=== PATIENT | male | born 2000 | race Hispanic/Latino ===

== ENCOUNTER 2022-03-31 20:55 | Inpatient (IN) | payer OTHER ==
[~2022-03-31] VITALS: Ht 167.6 cm; Wt 58.6 kg
[2022-03-31 21:29] LABS: HEMATOCRIT 44.8 % (42.0-52.0); HEMOGLOBIN 15.9 g/dl (13.5-17.5); MEAN CORPUSCULAR HEMOGLOBIN 30.6 pg (27.0-33.0); MEAN CORPUSCULAR HGB CONC 35.5 g/dl (32.0-36.5); MEAN CORPUSCULAR VOLUME 86.3 fl (80.0-96.0); PLATELET COUNT, AUTOMATED 277 10^3/uL (150-450); RED BLOOD COUNT 5.19 10^6/uL (4.30-6.10); WHITE BLOOD COUNT 12.4 10^3/uL (4.0-10.0)
[2022-03-31 21:52] LABS: AMPHETAMINES LEVEL URINE NEGATIVE (NEGATIVE); BARBITURATES URINE NEGATIVE (NEGATIVE); BENZODIAZEPINES URINE NEGATIVE (NEGATIVE); CANNABINOIDS URINE NEGATIVE (NEGATIVE); COCAINE METABOLITE URINE NEGATIVE (NEGATIVE); METHADONE URINE NEGATIVE (NEGATIVE); OPIATES URINE NEGATIVE (NEGATIVE); PHENCYCLIDINE URINE NEGATIVE (NEGATIVE)
[2022-03-31 22:01] LABS: ACETAMINOPHEN LEVEL < 2.0 UG/ML (10.0-30.0); ALBUMIN 4.2 GM/DL (3.2-5.2); ALT/SGPT 23 U/L (12-78); BILIRUBIN,DIRECT < 0.1 MG/DL (0.0-0.2); BILIRUBIN,TOTAL 0.5 MG/DL (0.2-1.0); BLOOD UREA NITROGEN 13 MG/DL (7-18); CALCIUM LEVEL 9.2 MG/DL (8.5-10.1); CARBON DIOXIDE LEVEL 30 MEQ/L (21-32); CHLORIDE LEVEL 108 MEQ/L (98-107); CREATININE FOR GFR 0.98 MG/DL (0.70-1.30); ETHYL ALCOHOL (ETHANOL) < 0.003 % (0.000-0.010); GLUCOSE, FASTING 83 MG/DL (70-100); POTASSIUM SERUM 3.9 MEQ/L (3.5-5.1); RSV AMPLIFICATION NEGATIVE (NEGATIVE); SALICYLATE LEVEL < 1.7 MG/DL (5.0-30.0); SODIUM LEVEL 145 MEQ/L (136-145); THYROID STIMULATING HORMONE 0.915 uIU/ML (0.463-3.98); TOTAL PROTEIN 7.1 GM/DL (6.4-8.2)
[2022-03-31] MEDS ORDERED: HOME MED LIST COMPLETE! XX SCH (22:40)
[2022-04-02] MEDS ORDERED: IBUPROFEN 400MG TAB PO PRN (11:20)
[2022-04-02] MEDS ORDERED: traZODone 50 MG TAB PO PRN (11:20)
[2022-04-02] MEDS ORDERED: diphenhydrAMINE 25MG CAP PO PRN (11:20)
[2022-04-02] MEDS ORDERED: OLANZapine ORAL DISINTEGRATING TAB 5MG PO PRN (11:20)
[2022-04-02] MEDS ORDERED: MOM 30ML SUSPENSION UDC PO PRN (11:20)
[2022-04-02] MEDS ORDERED: MAALOX 30 ML SUSP *UDC PO PRN (11:20)
[2022-04-02 17:03] VITALS: BP 114/67
[2022-04-03 06:57] VITALS: BP 123/55
[2022-04-03] MEDS: NICOTINE 21MG/24HR 1 EA TRANSDERMAL TD SCH (09:00)
[2022-04-03 17:51] VITALS: BP 135/66
[2022-04-04 07:04] VITALS: BP 128/61
[2022-04-04] MEDS: NICOTINE 21MG/24HR 1 EA TRANSDERMAL TD SCH (08:17)
[2022-04-04 18:50] VITALS: BP 111/56
[2022-04-05 07:00] VITALS: BP 117/63
[2022-04-05] MEDS: NICOTINE 21MG/24HR 1 EA TRANSDERMAL TD SCH (09:00)
[2022-04-06 06:00] VITALS: BP 133/59
[2022-04-06] MEDS: NICOTINE 21MG/24HR 1 EA TRANSDERMAL TD SCH (09:00)
[2022-04-06 17:27] VITALS: BP 102/64
[2022-04-07 06:51] VITALS: BP 113/79
[2022-04-07] MEDS: NICOTINE 21MG/24HR 1 EA TRANSDERMAL TD SCH (09:00)
[2022-04-07 17:36] VITALS: BP 125/65
[2022-04-08 06:00] VITALS: BP 147/83
[2022-04-08] MEDS: NICOTINE 21MG/24HR 1 EA TRANSDERMAL TD SCH (08:41)
== END 2022-04-08 11:15 | disposition home or self-care (01) | DRG 885 ==
LOC: EDBD 20:55 → M ED 20:55 → M ED INP 04-02 11:16 → M PSY 04-02 13:42
PROVIDERS: ADMIT Student in an Organized Health Care Education/Training Program; ATTEND Student in an Organized Health Care Education/Training Program
DX: F32.89 Other specified depressive episodes (principal); R45.851 Suicidal ideations; Z20.822 Contact with and (suspected) exposure to COVID-19